=== PATIENT | male | born 1995 | race Caucasian/White ===

== ENCOUNTER 2021-03-05 19:13 | Emergency (ER) | payer OTHER ==
[~2021-03-05] VITALS: Ht 188 cm; Wt 101.5 kg
--- NOTE | 2021-03-05 22:22 | REPVR ---
PROCEDURE INFORMATION: Exam: XR Left Shoulder Exam date and time: 03/05/2021 8:26 PM Age: 25 years old Clinical indication: Pain; Shoulder; Left; Additional info: Injury TECHNIQUE: Imaging protocol: XR Left shoulder. Views: 2 or more views. COMPARISON: No relevant prior studies available. FINDINGS: Bones/joints: No acute fracture or dislocation of the left shoulder. A downsloping acromion process is visualized. The bones are well-mineralized. No hypertrophic arthropathy. Soft tissues: No significant soft tissue swelling visualized. IMPRESSION: 1. No acute fracture or dislocation of the left shoulder. 2. A downsloping acromion process is visualized. Electronically signed by: Rik Irvin On 03/05/2021 22:22:30 PM
[2021-03-05] MEDS ORDERED: NAPR-837 PO (23:16)
[2021-03-05] MEDS ORDERED: NAPROXEN 250 MG TAB PO ONE (23:20)
[2021-03-06 00:33] VITALS: BP 139/84
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
== END 2021-03-06 00:36 | disposition home or self-care (01) ==
LOC: M ED 19:13
DX: S13.4XXA Sprain of ligaments of cervical spine, initial encounter (principal); S43.402A Unspecified sprain of left shoulder joint, initial encounter; V49.50XA Passenger injured in collision with unspecified motor vehicles in traffic accident, initial encounter; M51.26 Other intervertebral disc displacement, lumbar region; M50.221 Other cervical disc displacement at C4-C5 level; M48.061 Spinal stenosis, lumbar region without neurogenic claudication; M25.78 Osteophyte, vertebrae; E04.1 Nontoxic single thyroid nodule

== ENCOUNTER → 2025-05-04 | Outpatient (CLI) | payer OTHER ==
[~2025-05-04] MED LIST: LIDOCAINE 1% MDV 20 ML VIAL SC SCH; NAPR-837 PO
[2025-05-04 15:20] VITALS: TEMP 98
[2025-05-04 16:15] VITALS: BP 124/66; O2SAT 99
== END ==
LOC: M IRPRO 15:12
PROVIDERS: ATTEND Otolaryngology
DX: E04.1 Nontoxic single thyroid nodule (principal)

== ENCOUNTER 2025-06-13 19:11 | Emergency (ER) | payer OTHER ==
[~2025-06-13] VITALS: Ht 188 cm; Wt 102.3 kg
[~2025-06-13 19:11] MED LIST changes: -LIDOCAINE 1% MDV 20 ML VIAL SC SCH
[2025-06-13] MEDS: LIDOCAINE 1% MDV 20 ML VIAL SC ONE (19:45)
[2025-06-13] MEDS: cefTRIAXone SOD 1 GM in DEXTROSE 5% (D5W) ADV/MINI-BAG 50 ML IV ONE (20:15)
[2025-06-13] MEDS ORDERED: AMOX875T2 PO (20:19)
[2025-06-13 20:46] VITALS: BP 133/77; TEMP 97.5; O2SAT 96
== END 2025-06-13 20:47 | disposition home or self-care (01) ==
LOC: M ED 19:11
DX: L02.11 Cutaneous abscess of neck (principal); C73 Malignant neoplasm of thyroid gland; Z91.040 Latex allergy status; Z79.2 Long term (current) use of antibiotics
CPT/HCPCS: 10060; 87070; 87077; 87186; 87205; 96365; 99284; J0696

== ENCOUNTER → 2025-06-14 | Outpatient (CLI) | payer OTHER ==
[~2025-06-14] MED LIST changes: +AMOX875T2 PO
== END ==
LOC: M EKG 16:08
PROVIDERS: ATTEND Anesthesiology
DX: Z01.818 Encounter for other preprocedural examination (principal); R03.0 Elevated blood-pressure reading, without diagnosis of hypertension; R00.1 Bradycardia, unspecified

== ENCOUNTER 2025-06-20 09:37 | Day surgery (SDC) | payer OTHER ==
[~2025-06-20] VITALS: Ht 188 cm; Wt 109.0 kg
[~2025-06-20 09:37] MED LIST changes: +dexAMETHasone 4 MG/ML 1 ML VIAL IV ONE
[2025-06-20] MEDS: LR 1,000 ML IV SCH (10:18)
[2025-06-20] MEDS: ceFAZolin SOD 2 GM IV ONCE IV ONE (11:55)
[2025-06-20] MEDS: dexAMETHasone 4 MG/ML 1 ML VIAL IV ONE (11:55)
[2025-06-20] MEDS ORDERED: ONDANSETRON 4MG/2ML VIAL As Ordered ONE (11:56)
[2025-06-20] MEDS ORDERED: ROCURONIUM BROMIDE 50MG/5ML VIAL As Ordered ONE (11:56)
[2025-06-20] MEDS ORDERED: SUCCINYLCHOLINE 100MG/5ML SYRINGE As Ordered ONE (11:56)
[2025-06-20] MEDS ORDERED: GLYCOPYRROLATE INJ 0.2 MG/ML 2 ML VIAL As Ordered ONE (11:56)
[2025-06-20] MEDS ORDERED: LIDOCAINE 2% 100 MG/5 ML SDV (FOR ANES.) As Ordered ONE (11:56)
[2025-06-20] MEDS ORDERED: dexAMETHasone 4 MG/ML 1 ML VIAL As Ordered ONE (11:56)
[2025-06-20] MEDS ORDERED: MIDAZOLAM INJ 2 MG/2 ML VIAL As Ordered ONE (11:56)
[2025-06-20] MEDS ORDERED: HYDROmorphone HCL 2 MG/ML 1 ML VIAL As Ordered ONE (11:58)
[2025-06-20] MEDS: metroNIDAZOLE 500 MG in IV 1 EA IV ONE (12:02)
[2025-06-20] MEDS ORDERED: ACETAMINOPHEN 1000MG/100ML IV BAG As Ordered ONE (12:13)
[2025-06-20] MEDS: LIDOCAINE W/EPINEPHrine 1% 20 ML VIAL As Ordered ONE (12:15)
[2025-06-20] MEDS: EPINEPHrine 1 MG/ML INJ 30 ML MD-VIAL As Ordered ONE (13:12)
[2025-06-20] MEDS ORDERED: ONDANSETRON 4MG/2ML VIAL IV PRN (15:00)
[2025-06-20] MEDS ORDERED: LR 1,000 ML IV SCH (15:00)
[2025-06-20] MEDS ORDERED: HYDROMORPHONE HCL 0.5 MG/0.5 ML SYRINGE IV PRN (15:00)
[2025-06-20 16:33] VITALS: BP 130/72; TEMP 98; O2SAT 67
== END 2025-06-20 16:43 | disposition home or self-care (01) ==
LOC: M SDC 09:37
PROVIDERS: ATTEND Otolaryngology
DX: C73 Malignant neoplasm of thyroid gland (principal); F17.290 Nicotine dependence, other tobacco product, uncomplicated; Z91.040 Latex allergy status
CPT/HCPCS: 60220; 88307; J0131; J0165; J0330; J0688; J1100; J1171; J1596; J1836; J2250; J2405; J3010